=== PATIENT | female | born 1985 | race American Indian/Alaskan Native ===

== ENCOUNTER 2022-03-28 10:25 | Outpatient (CLI) | payer OTHER ==
[2022-03-28 10:47] VITALS: BP 105/60
== END 2022-03-28 13:18 | disposition home or self-care (01) ==
LOC: TRG 10:25 → APU 10:27 → TRG 13:18
PROVIDERS: ATTEND Obstetrics & Gynecology
DX: O09.893 Supervision of other high risk pregnancies, third trimester (principal); Z3A.38 38 weeks gestation of pregnancy
CPT/HCPCS: 59025

== ENCOUNTER 2022-04-08 05:49 | Inpatient (IN) | payer OTHER ==
--- NOTE | 2022-04-08 07:55 | History and Physical Report ---
History of Present Illness Date of examination: 04/08/22 Date of admission: 04/08/2022 Chief complaint: I'm cyndy! History of present illness: Pt is a @ 40 wks who presented to L&D triage for evaluation of labor. Was found to be in active labor at 6cm. Pt was being followed by [facility] d/t AMSaleem but was released to routine care after all testing was normal. She has had no complications this . EDC Calculations Gestational Age: 40 weeks on admission Past History : 4 Term Births: 3 Premature Births: 0 Living Children: 3 Para: 3 Mult. Births: 0 Prev : 0 Aborta: 0 Elect. Ab: 0 Spont. Ab: 0 Ectopics: 0 # 1 Delivery date: 2008 Weeks Gestation: 39.5 labor: no Delivery type: Anesthesia type: epidural Delivery location: [facility] [place] Sex: Female weight: 6-7 Comments: No complications. # 2 Delivery date: 2009 Weeks Gestation: 39.5 Delivery type: Hours of labor: ? Anesthesia type: none Delivery location: [facility] [place] Infant Sex: Male weight: 6-2 Comments: No complications. # 3 Delivery date: 2012 Weeks Gestation: 39.5 labor: no Delivery type: Anesthesia type: epidural Delivery location: [facility] [place] Infant Sex: Male weight: 6-8 Comments: No complications Past Medical History: Reviewed and updated today: Negative Past Medical History Past Surgical History: Reviewed and updated today: negative Family History Summary: First Degree Blood Relative - Has No Known Family History - Entered On: 08/08/2021 Social History: Patient is single Smoking History: Patient has never smoked. Risk Factors: Smoked Tobacco Use: Never smoker Smokeless Tobacco Use: Never Counseled to Quit/Cut Down: yes Passive Smoke Exposure: no HIV High Risk Behavior: no Exercise: no Seatbelt Use: preg-auto travel counselor % No Dietary Counseling Reason: pn yes Past Medical History Anesthesia Complications: negative Anemia: negative Autoimmune Disorder: negative Bleeding Disorder: negative Blood Transfusions: negative Breast Disease: negative Diabetes: negative Heart Disease: negative Hypertension: negative Hepatitis/Liver Disease: negative Kidney Disease/UTI: negative Neurologic/Epilepsy/Migraines: negative Phlebitis/Varicosities: negative Psychiatric: negative Pulmonary Disease/Asthma: negative Thyroid Disease: negative Hospitalizations: negative Surgery (Non-leather belt shaper): negative Abnormal PAP: negative GIOVANI Exposure: negative Infertility: negative Uterine Anomaly: negative Uterine Surgery (not C/S): negative Other Gynecologic Problems: negative Social Hx: Patient is single Smoking History: Patient has never smoked. Infection History Hx of STD: none HIV Risk Eval: no Hepatitis B Risk Eval: low risk Personal hx. of genital herpes: no Partner hx. of genital herpes: no Rash, Viral, or Febrile illness since last LMP? no Varicella/Chicken Pox Status: Unknown TB Risk: no Genetic History ADVANCED MATERNAL AGE Congenital Heart Defect: Mom: no Dad: no Fernando Disease: Mom: no Dad: no Thalassemia Mom: no Dad: no Neural Tube Defect Mom: no Dad: no Down's Syndrome Mom: no Dad: no Yogesh-Sachs Mom: no Dad: no Sickle Cell Disease/Trait Mom: no Dad: no Hemophilia Mom: no Dad: no Muscular Dystrophy Mom: no Dad: no Cystic Fibrosis Mom: no Dad: no Vass Chorea Mom: no Dad: no Mental Retardation Mom: no Dad: no Fragile X Mom: no Dad: no Other Genetic/Chromosomal Disorder Mom: no Dad: no Child w/other defect Mom: no Dad: no Enviromental Exposures Xray Exposure: no Medication, drug, or alcohol use since LMP: no Chemical/Other Exposure: no Exposure to Cat Liter: no Hx of Parvovirus (Fifth Disease): no Occupational Exposure to Children: none Active Medications (reviewed today): None Current Allergies (reviewed today): No known allergies Past History Past Medical History: no pertinent history Past Surgical History: no surgical history Family/Genetic History: none Social history: no significant social history - Obstetrical History Expected Date of Delivery: 04/08/22 Actual Gestation: 40 Week(s) 0 Day(s) : 4 Para: 3 Hx # Term Pregnancies: 3 Number of Pregnancies: 0 Spontaneous Abortions: 0 Induced : 0 Number of Living Children: 3 Medications and Allergies Allergies Allergy/AdvReac Type Severity Reaction Status Date / Time No Known Allergies Allergy Verified 03/28/22 10:39 Home Medications Medication Instructions Recorded Confirmed Last Taken Type Tobramycin [Tobrex 0.3%] 2 drop OP Q4HR #1 bottle 03/16/14 Unknown Rx Cyclobenzaprine [Flexeril] 10 mg PO QHS PRN #10 tablet 10/03/18 Unknown Rx Ibuprofen [Motrin] 600 mg PO Q8H PRN #20 tablet 10/03/18 Unknown Rx Active Meds: Active Medications Acetaminophen (Acetaminophen 325 Mg Tab) 650 mg PO Q4H PRN PRN Reason: Pain, Mild (1-3) Butorphanol Tartrate (Butorphanol 2 Mg/1 Ml Inj) 1 mg IV Q2H PRN PRN Reason: Pain, Moderate(4-6) LABOR PAIN Carboprost Tromethamine (Carboprost Tromethamine 250 Mcg/1 Ml Inj) 250 mcg IM ONCE PRN PRN Reason: Uterine Bleeding Ephedrine Sulfate (Ephedrine Sulfate 50 Mg/1 Ml Inj) 10 mg IV Q2M PRN PRN Reason: Hypotension Fentanyl (Fentanyl 100 Mcg/2 Ml Inj) 100 mcg IV Q2H PRN PRN Reason: Pain,Severe (7-10) LABOR PAIN Oxytocin/Sodium Chloride (Pitocin/Ns 30 Unit/500ml) 30 units in 500 mls @ 2 mls/hr IV TITR CRISTOFER; Protocol Lactated Ringer's (Lactated Ringers) 1,000 mls @ 125 mls/hr IV DIRECT CRISTOFER Oxytocin/Sodium Chloride (Pitocin/Ns 30 Unit/500ml) 30 units in 500 mls @ 40 mls/hr IV TITR CRISTOFER; Protocol Ampicillin Sodium (Ampicillin/Ns 2 Gm/100 Ml) 2 gm in 100 mls @ 100 mls/hr IV ONCE ONE; Protocol Stop: 04/08/22 08:42 Lidocaine (Lidocaine (2%) 20 Mg/1 Ml Vial 20 Ml Mdv) 20 ml INFILTRATI ONCE ONE Stop: 04/08/22 07:44 Loperamide HCl (Loperamide 2 Mg Cap) 2 mg PO ONCE PRN PRN Reason: give with Hemabate Methylergonovine Maleate (Methylergonovine Maleate 0.2 Mg/Ml Vial) 0.2 mg IM ONCE PRN PRN Reason: Uterine Bleeding Mineral Oil (Mineral Oil 30 Ml Oral Liqd) 30 ml PO QHS PRN PRN Reason: Constipation Misoprostol (Misoprostol 200 Mcg Tab) 800 mcg [place] ONCE PRN PRN Reason: Uterine Bleeding Naloxone HCl (Naloxone 0.4 Mg/1 Ml Inj) 0.1 mg IV Q2MIN PRN PRN Reason: Res Rate </= 8 or 02 SAT < 92% Ondansetron HCl (Ondansetron 4 Mg/2 Ml Inj) 4 mg IV Q8H PRN PRN Reason: Nausea And Vomiting Oxytocin (Oxytocin 10 Unit/1 Ml Inj) 10 unit IM ONCE PRN PRN Reason: Uterine Bleeding Promethazine HCl (Promethazine 25 Mg Tab) 25 mg PO Q6H PRN PRN Reason: Nausea And Vomiting Terbutaline Sulfate (Terbutaline 1 Mg/1 Ml Inj) 0.25 mg SUB-Q ONCE PRN PRN Reason: Hyperstimulation/Hypertonicity Review of Systems All systems: negative - Physical Exam Cardiovascular: Regular rate Lungs: Positive: Normal air movement Abdomen: Positive: normal appearance Genitourinary (Female): Positive: normal external genitalia, normal perenium Vulva: both: normal Vagina: Positive: normal moisture Uterus: Positive: enlarged (Normal for 39+ wk gestation. ) Extremities: Positive: normal - Obstetrical FHR: category 1 Uterine Contraction Monitor Mode: External Cervical Dilatation: 7.5 (Per document preparer microfilming) Cervical Effacement Percentage: 90 station: 0 Uterine Contraction Pattern: Regular Uterine Tone Measurement Phase: Resting Uterine Contraction Intensity: Moderate Results Result Diagrams: 04/08/22 08:00 All other labs normal. GBS POSITIVE HBsAg Screen Negative Negative *1 RPR Non Reactive Non Reactive *2 Rubella Antibodies, IgG 8.56 index Immune >0.99 *3 Non-immune <0.90 Equivocal 0.90 - 0.99 Immune >0.99 ABO Grouping O *4 Rh Factor Positive *5 Please note: Prior records for this patient's ABO / Rh type are not available for additional verification. Antibody Screen Negative Negative *6 Tests: (2) HB Solu + Rflx Fra ([id number]) Hemoglobin (Hgb) Solubility Negative Negative *31 Tests: (3) HIV Ag/Ab with Reflex ([id number]) HIV Screen 4th Generation wRfx Non Reactive Non Reactive *32 Tests: (4) Toxoplasma gondii Ab,IgM ([id number]) ! Toxoplasma gondii Ab,IgM <3.0 AU/mL 0.0-7.9 *33 Negative <8.0 Equivocal 8.0 - 9.9 Positive >9.9 Tests: (5) Comment: ([id number]) ! Comment: SPRCS *34 It is presumed the patient has not been infected with and is not undergoing an acute infection with Toxoplasma. If symptoms persist, submit a new specimen after three weeks. Tests: (6) Varicella-Zoster Ab, IgM ([id number]) ! Varicella-Zoster Ab, IgM <0.91 index 0.00-0.90 *35 Negative <0.91 Borderline 0.91 - 1.09 Positive >1.09 Tests: (7) HCV Antibody reflex to NIKOLE ([id number]) HCV Ab 0.2 s/co ratio 0.0-0.9 *36 Tests: (8) Interpretation: ([id number]) ! Interpretation: SPRCS *37 Negative Not infected with HCV, unless recent infection is suspected or other evidence exists to indicate HCV infection. T Assessment and Plan A: 36 y.o. @ 40 wks, active labor, GBS Positive, AMA. - Patient Problems (1) with 39 completed weeks gestation Current Visit: Yes Status: Acute Plan to address problem: Admit to labor and delivery. Initiate IV. Draw admission labs. Epidural for pain mangement while in labor. Monitor status through EFM. (2) GBS (group B streptococcus) infection Current Visit: Yes Status: Acute Plan to address problem: Antibiotics while in labor. (3) Active labor at term Current Visit: Yes Status: Acute Plan to address problem: Anticipate .
[2022-04-08] MEDS ORDERED: OXYTOCIN DRIP 30 UNITS/500 ML BAG IV SCH ×3 (08:00→15:39)
[2022-04-08 08:25] LABS: Hematocrit 34.5 % (30.3-42.9); Hemoglobin 11.7 gm/dl (10.1-14.3); Mean Corpuscular HGB Conc 34 % (30-34); Mean Corpuscular Volume 91 fl (79-97); Platelet Count 252 K/mm3 (140-440); Red Blood Count 3.81 M/mm3 (3.65-5.03); Red Cell Distribution Width 14.8 % (13.2-15.2)
[2022-04-08] MEDS ORDERED: ACETAMINOPHEN 325 MG TAB PO PRN (08:30)
[2022-04-08] MEDS ORDERED: NALOXONE 0.4 MG/1 ML INJ IV PRN ×2 (08:30→09:58)
[2022-04-08] MEDS ORDERED: ePHEDrine SULFATE 50 MG/1 ML INJ IV PRN ×2 (08:30→09:58)
[2022-04-08] MEDS ORDERED: LOPERAMIDE 2 MG CAP PO PRN (08:30)
[2022-04-08] MEDS ORDERED: BUTORPHANOL 2 MG/1 ML INJ IV PRN (08:30)
[2022-04-08] MEDS ORDERED: OXYTOCIN 10 UNIT/1 ML INJ IM PRN (08:30)
[2022-04-08] MEDS ORDERED: LACTATED RINGERS 1,000 ML IV SCH (08:30)
[2022-04-08] MEDS ORDERED: PROMETHAZINE 25 MG TAB PO PRN ×2 (08:30→15:39)
[2022-04-08] MEDS ORDERED: ONDANSETRON 4 MG/2 ML INJ IV PRN ×2 (08:30→15:39)
[2022-04-08] MEDS ORDERED: miSOPROStol 200 MCG TAB PR PRN (08:30)
[2022-04-08] MEDS ORDERED: TERBUTALINE 1 MG/1 ML INJ SUB-Q PRN (08:30)
[2022-04-08] MEDS ORDERED: LIDOCAINE (2%) 20 MG/1 ML VIAL 20 ML MDV INFILTRATI SCH (08:30)
[2022-04-08] MEDS ORDERED: METHYLERGONOVINE MALEATE 0.2 MG/ML VIAL IM PRN (08:30)
[2022-04-08] MEDS ORDERED: CARBOPROST TROMETHAMINE 250 MCG/1 ML INJ IM PRN (08:30)
[2022-04-08] MEDS ORDERED: MINERAL OIL 30 ML ORAL LIQD PO PRN (08:30)
[2022-04-08] MEDS ORDERED: fentaNYL 100 MCG/2 ML INJ IV PRN (08:30)
[2022-04-08] MEDS ORDERED: AMPICILLIN/NS 2 GM/100 ML 2 GM/100 ML BAG IV SCH (09:00)
--- NOTE | 2022-04-08 09:38 | Event Note ---
Date: 04/08/22 (Feeling vaginal pressure) Pt with c/o feeling vaginal pressure. Cervical exam /. Comfortable with epidural. Anticipate .
[2022-04-08] MEDS ORDERED: fentaNYL-BUPIV 2 MCG/ML-0.125% 200 MCG/100 ML BAG EPIDURAL SCH (10:00)
--- NOTE | 2022-04-08 11:23 | Procedure Note ---
OB Delivery Note - Delivery Date of Delivery: 04/08/22 Call Center Trainer: ISIDRO KIMBROUGH Estimated blood loss: 300cc - Vaginal Delivery presentation: vertex Delivery position: OA Intrapartum events: none Delivery induction: none Delivery augmentation: rupture of membranes (AROM clear fluid.) Delivery monitor: external FHT, external uterine Route of delivery: Delivery cord: 3 umbilical vessels, other (Body cord X loose, easily reduced. ) Episiotomy: none Delivery laceration: none Anesthesia: intravenous (Fentanyl X1), epidural Delivery comments: of viable male infant. Loose body cord X1, easily reduced. Infant to mother abdomen for skin to skin. Cord clamped after cessation of pulse. Cut by FOC. Spontaneous delivery of placenta, intact, complete, 3 vessels noted. Perineum and vagina inspected, no lacerations noted. Fundus firm, moderate normal bleeding noted. Blood loss 300ml. Apgars 8,9. Infant weight 7-0. Sponges and instruments counted X2 with RN and correct X2. Infant and mother left in stable condition in care of RN. - A at 1 minute: 8 at 5 minutes: 9 Gender: Male ("Farber", 7-0)
[2022-04-08] MEDS ORDERED: miSOPROStol 100 MCG TAB PR PRN (15:39)
[2022-04-08] MEDS ORDERED: MAGNESIUM HYDROXIDE (MOM) ORAL LIQD UDC PO PRN (15:39)
[2022-04-08] MEDS ORDERED: PROMETHAZINE 25 MG RECT SUPP PR PRN (15:39)
[2022-04-08] MEDS ORDERED: LANOLIN/ZINC/DIMETHICONE (LANSINOH) 7 GM TP PRN ×2 (15:39)
[2022-04-08] MEDS ORDERED: BENZOCAINE/MENTHOL 20/0.5% TOP SPRAY 56 GM TP PRN (15:39)
[2022-04-08] MEDS ORDERED: WITCH HAZEL/ GLYCERIN PAD TP PRN (15:39)
[2022-04-08] MEDS ORDERED: oxyCODONE /ACETAMINOPHEN 5-325MG TAB PO PRN (15:39)
[2022-04-08] MEDS ORDERED: diphenhydrAMINE 25 MG CAP PO PRN (15:39)
[2022-04-08] MEDS ORDERED: ACETAMINOPHEN 500 MG TAB PO PRN (15:46)
[2022-04-08] MEDS: IBUPROFEN 800 MG TAB PO SCH (16:25)
--- NOTE | 2022-04-08 18:14 | Progress Note ---
Labor Epidural - Labor Epidural Start Time: :08 Stop Time: :25 Performed by:: RACHAEL VARGAS Procedure: Patient is requesting epidural for labor pain. H&P and labs reviewed. Procedure explained, questions answered, consent obtained. Patient placed in sitting position with monitors applied. Timeout performed immediately before start of procedure. Prep/drape in usual sterile fashion. Skin localized 3 mL 1% lidocaine at L[3]-L[4] interspace. 17-gauge Touhy epidural needle advanced to YASH with saline at [8] cm. No blood/CSF noted via epidural needle. Epidural catheter advanced to [12] cm. Negative aspiration for blood and CSF via catheter, negative response to test dose 3 ml 1.5% lidocaine w/ Epi. Sterile dressing applied followed by tape reinforcement. Patient tolerated procedure well. No immediate complications noted.
--- NOTE | 2022-04-08 18:17 | Anesthesia Consultation ---
Anesthesia Consult and Med Hx Date of service: 04/08/22 - Airway Anesthetic Teeth Evaluation: Poor ROM Head & Neck: Adequate Mental/Hyoid Distance: Adequate Mallampati Class: Class II Intubation Access Assessment: Good - Pulmonary Exam CTA: Yes - Pre-Operative Health Status ASA Pre-Surgery Classification: ASA2 Proposed Anesthetic Plan: Epidural - Pre-Anesthesia Comment Pre-Anesthesia Comments: Zaida Quijano CRNA involed in patient preop and epidural placement - Pulmonary Hx Asthma: No COPD: No Hx Pneumonia: No - Cardiovascular System Hx Hypertension: No - Central Nervous System Hx Seizures: No Hx Psychiatric Problems: No - Endocrine Hx Renal Disease: No Hx End Stage Renal Disease: No Hx Hypothyroidism: No Hx Hyperthyroidism: No - Hematic Hx Anemia: No Hx Sickle Cell Disease: No - Other Systems Hx Alcohol Use: No
--- NOTE | 2022-04-08 18:17 | Post Anesthesia Evaluation ---
- Post Anesthesia Evaluation Patient Participated: Yes Airway Patent: Yes Stable Respiratory Function: Yes Nausea/Vomiting: No Temp > 96.8F: Yes Pain Manageable: Yes Adequeate Hydration: Yes Anesthesia Complications: No Block Receding Appropriately: Yes Patient on Ventilator: No
[2022-04-08] MEDS: DOCUSATE SODIUM 100 MG CAP PO SCH (21:17)
[2022-04-09] MEDS: IBUPROFEN 800 MG TAB PO SCH ×4 (00:10→23:14)
[2022-04-09 00:37] LABS: Hematocrit 29.3 % (30.3-42.9); Hemoglobin 9.8 gm/dl (10.1-14.3)
[2022-04-09] MEDS ORDERED: TETANUS,DIPH,PERTUSS(ACELL) VACCINE 0.5 ML SYRINGE IM ONE (06:00)
[2022-04-09] MEDS: PRENATAL VIT27-FE FUMARATE-FOLIC ACID VIT TAB PO SCH (10:22)
[2022-04-09] MEDS: DOCUSATE SODIUM 100 MG CAP PO SCH ×2 (10:23→23:15)
[2022-04-09] MEDS: FERROUS SULFATE 325 MG TAB PO SCH (10:23)
--- NOTE | 2022-04-09 14:37 | Progress Note ---
Assessment and Plan Pt reports ambulating, voiding, and eating without difficulty. POC with precautions d/w pt. Questions encouraged and addressed. Pt verbalizes understanding and agrees to POC. - Patient Problems (1) (normal spontaneous vaginal delivery) Current Visit: Yes Status: Acute Plan to address problem: continue pathway anticipate discharge home tomorrow Subjective - Subjective Date of service: 04/09/22 Principal diagnosis: s/p Patient reports: appetite normal, voiding normally, pain well controlled, ambulating normally [place]: doing well Objective - Vital Signs Latest vital signs: Vital Signs Temp Pulse Resp BP BP Pulse Ox Pulse Ox 04/09/22 07:39 98.2 F 65 16 102/53 99 04/09/22 05:00 98 04/09/22 04:20 98 04/09/22 01:35 98 04/09/22 00:40 98.2 F 74 20 92/54 98 04/09/22 00:10 98 04/08/22 22:10 98 04/08/22 21:25 98.5 F 73 20 100/44 97 04/08/22 20:40 98 04/08/22 16:25 16 04/08/22 15:53 100 04/08/22 15:47 98.2 F 71 18 97/55 100 Intake and Output 04/08/22 04/09/22 04/09/22 23:59 07:59 15:59 Intake Total 360 240 Output Total 200 250 Balance 160 -250 240 Intake: Oral 360 240 Output: Urine 200 250 Void 200 250 Other: Total, Intake Amount 120 240 Total, Output Amount 200 250 # Voids Void 1 - Exam Breasts: Present: normal Lungs: Present: Normal air movement Abdomen: Present: normal appearance, soft. Absent: distention, tenderness, guarding Vulva: both: normal Uterus: Present: normal, firm, fundal height below umbilicus Extremities: Present: normal - Labs Labs: Abnormal lab results 04/09/22 Range/Units 00:10 Hgb 9.8 L (10.1-14.3) gm/dl Hct 29.3 L (30.3-42.9) %
[2022-04-10] MEDS: IBUPROFEN 800 MG TAB PO SCH (05:13)
--- NOTE | 2022-04-10 09:15 | Discharge Summary ---
Providers - Providers Date of Admission: 04/08/22 07:44 Date of discharge: 04/10/22 (pt desires discharge home) Attending physician: GOYO WHITTINGTON MD Primary care physician: GOYO WHITTINGTON MD Hospitalization Reason for admission: active labor, IUP at term Delivery: Episiotomy: none Laceration: none Other procedures: none complications: none Discharge diagnosis: IUP at term delivered [place] baby: male Condition at discharge: Good Disposition: 01 HOME / SELF CARE / HOMELESS - Discharge Diagnoses (1) (normal spontaneous vaginal delivery) Status: Acute Plan - Discharge Medications Prescriptions: Lidocain2.5%/Prilocai2.5% [Emla] 1 applic TP ONCE #1 tube Ibuprofen [Motrin] 800 mg PO Q8HR PRN #20 tablet PRN Reason: Pain, Moderate (4-6) - Provider Discharge Summary Activity: routine, no sex for 6 weeks, no heavy lifting 4 weeks, no strenuous exercise Diet: routine Instructions: routine Additional instructions: [] Smoking cessation referral if applicable(refer to patient education folder for contact #) [] Refer to [facility]'s [facility] Booklet Call your doctor immediately for: * Fever > 100.5 * Heavy vaginal bleeding ( >1 pad per hour) * Severe persistent headache * Shortness of breath * Reddened, hot, painful area to leg or breast Congratulations! Please call [phone] and schedule your visit in 3 weeks! Please also call and schedule your elective circumcision in 1 week, if desired. Bring your prescription with you to your appointment. Do not apply the medication before the appointment. Thank you! - Follow up plan Follow up: GOYO WHITTINGTON MD [Primary Care Provider] - 7 Days
[2022-04-10] MEDS: PRENATAL VIT27-FE FUMARATE-FOLIC ACID VIT TAB PO SCH (10:11)
[2022-04-10] MEDS: DOCUSATE SODIUM 100 MG CAP PO SCH (10:11)
[2022-04-10] MEDS: FERROUS SULFATE 325 MG TAB PO SCH (10:11)
[2022-04-10 10:14] VITALS: BP 100/51
== END 2022-04-10 11:33 | disposition home or self-care (01) | DRG 775 ==
LOC: TRG 05:49 → APU 07:30 → LD 08:02 → TRG 08:07 → LD 08:26 → OB 15:31
PROVIDERS: ADMIT Student in an Organized Health Care Education/Training Program; ATTEND Student in an Organized Health Care Education/Training Program
PROC: 10E0XZZ Delivery of Products of Conception, External Approach (ICD-10-PCS; principal; 2022-04-08)
PROC: 10907ZC Drainage of Amniotic Fluid, Therapeutic from Products of Conception, Via Natural or Artificial Opening (ICD-10-PCS; 2022-04-08)
PROC: 3E0R3BZ Introduction of Anesthetic Agent into Spinal Canal, Percutaneous Approach (ICD-10-PCS; 2022-04-08)
PROC: 00HU33Z Insertion of Infusion Device into Spinal Canal, Percutaneous Approach (ICD-10-PCS; 2022-04-08)
PROC: 3E0234Z Introduction of Serum, Toxoid and Vaccine into Muscle, Percutaneous Approach (ICD-10-PCS; 2022-04-09)
DX: O69.81X0 Labor and delivery complicated by cord around neck, without compression, not applicable or unspecified (principal); Z37.0 Single live birth; O99.824 Streptococcus B carrier state complicating childbirth; Z20.822 Contact with and (suspected) exposure to COVID-19; Z23 Encounter for immunization; Z3A.40 40 weeks gestation of pregnancy
CPT/HCPCS: 36415; 85014; 85018; 85027; 86592; 86850; 86900; 86901; G0378; J3490; U0003